=== PATIENT | male | born 1965 | race Caucasian/White ===

== ENCOUNTER 2018-12-16 05:28 | Day surgery (SDC) | payer OTHER, BC ==
[~2018-12-16] VITALS: Ht 165.1 cm; Wt 52.2 kg
--- NOTE | ~2018-12-16 | O ---
[facility] [place] [address] OPERATIVE REPORT Name: NELSY SHABAZZ Room #: DEP [facility]#: [id number] Admission: 12/16/18 ������������������ Attend Phys: Lynne Alexander, Discharge: 12/16/18 ������������������ Date of : 69 Report #: [id number] THIS REPORT FOR: //name// CC: Presley Alexander DATE OF SERVICE: 12/16/2018 PREOPERATIVE DIAGNOSIS: Right retained hardware, deep, painful. POSTOPERATIVE DIAGNOSIS: Right retained hardware, deep, painful. PROCEDURE PERFORMED: Removal of right deep painful screws x 2. SURGEON: Lynne Alexander MD ANESTHESIA: General mask anesthesia. ESTIMATED BLOOD LOSS: Minimal. TOURNIQUET TIME: Approximately 15 minutes. COMPLICATIONS: None. CONDITION: Stable. DISPOSITION: Recovery room. INDICATIONS: The patient is a 53-year-old male with the above-mentioned diagnosis. He elects for operative treatment. The risks, benefits, and complications were discussed included but were not limited to infection, damage to vessels or nerves, incomplete relief of symptoms. Informed consent was obtained. The correct extremity was identified and labeled by myself after verbal confirmation of patient as well as visual confirmation and signed informed consent. DESCRIPTION OF PROCEDURE: The patient was brought back to the Operating Room and placed on the operating table in supine position. He received preoperative antibiotics. Tourniquet was placed over padding on the patient's right upper extremity on the forearm. Right upper extremity was sterilely prepped and draped in usual fashion. A final timeout was taken to verify correct patient, operative procedure, operative site, all concurred. The arm was elevated, exsanguinated and tourniquet inflated. Next, the hyperkeratotic skin was excised in an elliptical fashion. The distal screw was removed without difficulty. Dissection was carried down through subcutaneous tissue with tenotomy scissors. The proximal screw was removed without difficulty. [facility] [address] [place] [address] OPERATIVE REPORT Name: NELSY SHABAZZ Room #: DEP [facility].#: [id number] Admission: 12/16/18 ������������������ Attend Phys: Lynne Alexander, Discharge: 12/16/18 ������������������ Date of : 69 Report #: [id number] wound was thoroughly irrigated. The skin was closed with 4-0 nylon suture. Wound was infiltrated with approximately 2 L of 0.25% Marcaine. He was placed in a bulky dressing. All fingers were pink with brisk capillary refill at the conclusion of the case after deflation of tourniquet. All sponge and needle counts were correct. The patient was transferred to postoperative recovery room in stable condition. ��������������������������������������������� ���������������������������������������� By: ��������������������������������������������� 1531 1827 Lynne Alexander MD /linette
[~2018-12-16 05:28] MED LIST: ASPIR 8181 MG PO; CARVEDILOL12.5 MG PO; MULTI VITAMIN1 EACH PO; XANAX1 MG PO
[2018-12-16 08:09] LABS: CALCIUM 8.5 mg/dL (8.5-10.1); CREATININE 10.3 mg/dL (0.7-1.3); POTASSIUM 4.9 mmol/L (3.5-5.1)
[2018-12-16 08:15] LABS: ALBUMIN 3.7 g/dL (3.4-5.0); TOTAL BILIRUBIN 0.5 mg/dL (<0.1-1.0); TOTAL PROTEIN 8.5 g/dL (6.4-8.2)
[2018-12-16 09:24] VITALS: BP 126/38
--- NOTE | 2018-12-16 09:27 | EKG ---
[address] [address] ELECTROCARDIOGRAM REPORT Name: TRESA SHABAZZHOANG Mitchell III Room #: [address] [place] [address]#: [id number] ������������������ Admission: 12/16/18 ������������������ Attend Phys: Lynne Alexander, Discharge: ������������������ Date of : 69 Report #: [id number] ����������������������������������������������������������������� [id number] THIS REPORT FOR: //name// [facility] Test Date: 2018-12-16 Test Time: 07:48:38 Pat Name: NELSY SHABAZZ Department: Room: 150 5 Gender: M Senior Private Client Advisor: LUISA : 1965 Requested By: Lynne Alexander Order Number: [id number] MD: Kit Powell Measurements Intervals [place] Rate: 75 P: 59 IN: 168 QRS: -56 QRSD: 143 T: 55 QT: 468 QTc: 523 Interpretive Statements Sinus rhythm RBBB and LAFB No previous ECG available for comparison Electronically Signed On 12-16-2018 9:27:13 [employer] by Kit Powell [email or web address] ��������������������������������������������� <ELECTRONICALLY SIGNED> ���������������������������������������� By: Kit Powell MD, [facility] ��������������������������������������������� 12/16/18 0927 D: 02/747 7 Kit Powell MD, FACC /EPI
[2018-12-16 09:33] VITALS: BP 126/38
== END 2018-12-16 10:25 | disposition home or self-care (01) ==
LOC: OR 05:28 → TBA 05:28 → OR 10:25
PROVIDERS: Orthopaedic Surgery Hand Surgery
DX: T84.84XA Pain due to internal orthopedic prosthetic devices, implants and grafts, initial encounter (principal); M79.644 Pain in right finger(s); I12.0 Hypertensive chronic kidney disease with stage 5 chronic kidney disease or end stage renal disease; N18.6 End stage renal disease; F41.9 Anxiety disorder, unspecified; Z99.2 Dependence on renal dialysis; Z87.891 Personal history of nicotine dependence; Z85.3 Personal history of malignant neoplasm of breast; Z98.890 Other specified postprocedural states; Z91.041 Radiographic dye allergy status; Z88.8 Allergy status to other drugs, medicaments and biological substances; Z79.82 Long term (current) use of aspirin; Z79.899 Other long term (current) drug therapy
CPT/HCPCS: 50010; 50101; 50386; 57006; 57091; 57178; 62110; 62900; 70005